=== PATIENT | male | born 1960 | race African-American/Black ===

== ENCOUNTER 2019-06-07 17:51 | Inpatient (IN) | payer MEDICAID ==
[~2019-06-07] VITALS: Ht 172.7 cm; Wt 78.0 kg
[2019-06-07] MEDS ORDERED: MORPHINE SULFATE 4 MG/ML CPJ (NOT FOR IM USE) IV STA (17:53)
[2019-06-07] MEDS ORDERED: SODIUM CHLORIDE 0.9% 1,000 ML IV ONE (17:53)
[2019-06-07] MEDS ORDERED: ONDANSETRON HCL 4MG/2ML INJ IV STA (17:53)
[2019-06-07 18:41] LABS: BASOPHILS % 0.5 % (0.0-2.0); EOSINOPHILS % 5.1 % (0.0-5.0); HEMATOCRIT. 37.7 % (42.0-52.0); HEMOGLOBIN. 12.8 g/dL (14.0-18.0); LYMPHOCYTES % 42.8 % (20.0-50.0); MEAN CORPUSCULAR HEMOGLOBIN 29.5 pg (28.0-32.0); MEAN CORPUSCULAR VOLUME 86.7 fL (80.0-94.0); MEAN PLATELET VOLUME 7.5 fl (7.4-10.4); MONOCYTES % 8.8 % (2.0-8.0); NEUTROPHILS % 42.8 % (40.0-76.0); PLATELET 222 x1000/uL (130-400); RED BLOOD CELL COUNT 4.35 mill/uL (4.7-6.1); RED CELL DISTRIBUTION WIDTH 14.4 % (11.6-14.6)
[2019-06-07 18:46] LABS: CHLORIDE 117 mEq/L (98-107)
[2019-06-07] MEDS ORDERED: ASPIRIN 81MG TABLET PO ONE (20:15)
[2019-06-07] MEDS ORDERED: ACETAMINOPHEN 325MG TABLET PO PRN (20:45)
[2019-06-07] MEDS ORDERED: NITROGLYCERIN 0.4MG TABLET SL SL PRN (20:45)
[2019-06-07] MEDS ORDERED: HYDROCODONE/ACETAMINOPHEN 10/325MG TABLET PO ONE (20:45)
[2019-06-07] MEDS ORDERED: NA PHOS,M-B/NA PHOS,DI-BA ENEMA 118ML PR PRN (20:45)
[2019-06-07] MEDS ORDERED: IPRATROPIUM/ALBUTEROL 0.5-3(2.5)MG/3ML NEB NEB PRN (20:45)
[2019-06-07] MEDS ORDERED: LORAZEPAM 0.5MG TABLET PO PRN (20:45)
[2019-06-07] MEDS ORDERED: CLONIDINE 0.1MG TABLET PO PRN (20:45)
[2019-06-07] MEDS ORDERED: ZOLPIDEM TARTRATE 5MG TABLET PO PRN (20:45)
[2019-06-07] MEDS ORDERED: KETOROLAC 15MG/ML VIAL IV PRN (20:45)
[2019-06-07] MEDS ORDERED: MAGNESIUM/ALUMINUM HYDROXIDE/SIMETHICONE 30ML UDC PO PRN (20:45)
[2019-06-07] MEDS ORDERED: ONDANSETRON HCL 4MG/2ML INJ IV PRN (20:45)
[2019-06-07] MEDS ORDERED: GUAIFENESIN 200MG/10ML SUGAR FREE UDC PO PRN (20:45)
[2019-06-07] MEDS ORDERED: POTASSIUM CHLORIDE 20MEQ TABLET SR PO NR (20:45)
[2019-06-07] MEDS ORDERED: METOPROLOL TARTRATE 25MG TABLET PO SCH (21:00)
[2019-06-07] MEDS ORDERED: SODIUM CHLORIDE 0.9% 1,000 ML IV SCH (21:00)
[2019-06-07] MEDS ORDERED: DEXTROSE 50% WATER 50ML SYRINGE IV PRN (21:15)
[2019-06-07 22:12] LABS: ETHANOL BLOOD < 10 mg/dL
[2019-06-07 22:13] LABS: CREATINE KINASE MB FRACTION 2.4 ng/mL (0.5-3.6); LDL CHOLESTEROL 129 mg/dL (5-100)
[2019-06-07 22:14] LABS: TOTAL IRON BINDING CAPACITY 242 ug/dL (250-450)
[2019-06-07 22:16] LABS: HDL CHOLESTEROL 47 mg/dL (40-59)
[2019-06-07 22:31] LABS: FOLIC ACID (FOLATE) SERUM > 20.00 ng/mL (>5.38)
[2019-06-07 22:42] LABS: VITAMIN B12 SERUM 843 pg/mL (211-911)
[2019-06-07 23:00] VITALS: BP 140/72
[2019-06-07] MEDS ORDERED: LANTUSUD SUBCUT (23:45)
[2019-06-07] MEDS ORDERED: INSLIS SUBCUT (23:46)
[2019-06-07] MEDS ORDERED: LIP40 PO (23:47)
[2019-06-07] MEDS ORDERED: CARV25TA47 PO (23:47)
[2019-06-07] MEDS ORDERED: ASPI-1393 PO (23:48)
[2019-06-07] MEDS ORDERED: FERR325T23 GT (23:49)
[2019-06-07] MEDS ORDERED: LISI-186 PO (23:49)
[2019-06-07] MEDS ORDERED: RANI-655 MT (23:50)
[2019-06-07] MEDS ORDERED: HYDR-4133 PO (23:51)
[2019-06-08 04:00] VITALS: BP 154/81
[2019-06-08] MEDS: BLOOD SUGAR DIAGNOSTIC STRIP TEST SCH ×4 (06:45→17:17)
[2019-06-08 07:25] LABS: CREATINE KINASE MB FRACTION 2.5 ng/mL (0.5-3.6)
[2019-06-08] MEDS: INSULIN LISPRO 100 UNITS/ML SUBCUT SCH ×4 (07:50→17:17)
[2019-06-08 08:00] VITALS: BP 166/91
[2019-06-08] MEDS ORDERED: ASPIRIN 325MG EC TABLET PO SCH (09:00)
[2019-06-08] MEDS ORDERED: FAMOTIDINE 20MG TABLET PO SCH (09:00)
[2019-06-08] MEDS ORDERED: ENOXAPARIN 40MG/0.4ML SYR SUBCUT SCH (09:00)
[2019-06-08] MEDS ORDERED: LISINOPRIL 20MG TABLET PO SCH (09:30)
[2019-06-08 11:36] LABS: CLARITY URINE CLEAR (CLEAR); COLOR URINE YELLOW (YELLOW); KETONES URINE NEGATIVE (NEGATIVE); LEUKOCYTE ESTERASE URINE NEGATIVE (NEGATIVE); NITRITE URINE NEGATIVE (NEGATIVE); OCCULT BLOOD URINE 1+ (NEGATIVE); PROTEIN URINE 3+ (NEGATIVE); SPECIFIC GRAVITY URINE 1.012 (1.005-1.030); UROBILINOGEN URINE 0.2 E.U./dL (0.2-1.0)
[2019-06-08 12:00] VITALS: BP 148/76
[2019-06-08 12:18] LABS: *AMPHETAMINES SCREEN URINE NEGATIVE (NEGATIVE); *BARBITURATES SCREEN URINE NEGATIVE (NEGATIVE); *BENZODIAZEPINES SCREEN URINE NEGATIVE (NEGATIVE); *COCAINE SCREEN URINE NEGATIVE (NEGATIVE); METHADONE URINE SCREEN NEGATIVE (NEGATIVE); OPIATES URINE SCREEN PRESUMTIVE POSITIVE (NEGATIVE)
[2019-06-08 12:19] LABS: CANNABINOID URINE SCREEN NEGATIVE (NEGATIVE); PHENCYCLIDINE URINE SCREEN NEGATIVE (NEGATIVE)
[2019-06-08] MEDS ORDERED: TRAMADOL 50MG TABLET PO PRN (14:15)
== END 2019-06-08 18:04 | disposition home or self-care (01) | DRG 204 ==
LOC: ER 18:13 → 6WST 20:27 → EDBEDREQTM 20:30 → EDBEDREQ 20:30 → ENRESERV 22:04
PROVIDERS: ADMIT Internal Medicine; ATTEND Internal Medicine
DX: R55 Syncope and collapse (principal); N17.0 Acute kidney failure with tubular necrosis; E43 Unspecified severe protein-calorie malnutrition; E83.51 Hypocalcemia; D63.8 Anemia in other chronic diseases classified elsewhere; E11.9 Type 2 diabetes mellitus without complications; E87.6 Hypokalemia; S42.202A Unspecified fracture of upper end of left humerus, initial encounter for closed fracture; I10 Essential (primary) hypertension; I25.10 Atherosclerotic heart disease of native coronary artery without angina pectoris; R00.1 Bradycardia, unspecified; Z68.26 Body mass index [BMI] 26.0-26.9, adult; W18.39XA Other fall on same level, initial encounter; Y93.89 Activity, other specified; Y92.89 Other specified places as the place of occurrence of the external cause; Y99.8 Other external cause status
CPT/HCPCS: 36415; 71045; 73030; 80061; 80305; 80320; 81003; 82550; 82553; 82607; 82746; 82962; 83036; 83540; 83550; 83880; 84484; 93005; 93306; 93970; 96361; 96374; 96375; 99285; J1650; J1815; J2270; J2405; J7030; G0480